=== PATIENT | female | born 1985 | race Caucasian/White ===

== ENCOUNTER 2018-07-27 08:28 | Emergency (ER) | payer OTHER ==
[~2018-07-27] VITALS: Ht 172.7 cm; Wt 90.7 kg
[~2018-07-27 08:28] MED LIST: CLEOCIN HCL300 MG PO; NAPROSYN500 MG PO; NOHOMEMEDICATIONS; NORCO 5-325 TA1 EACH PO; TRINESSA1 EACH; VICODIN 5-5001 EACH PO
[2018-07-27 08:37] VITALS: BP 137/76
[2018-07-27] MEDS ORDERED: XANAX 0.5 MG0.5 MG PO (08:39)
[2018-07-27] MEDS ORDERED: TRAMADOL 50 MG50 MG PO (08:39)
== END 2018-07-27 09:14 | disposition home or self-care (01) ==
LOC: M.ERS 08:28
DX: L02.214 Cutaneous abscess of groin (principal); I10 Essential (primary) hypertension; Z88.2 Allergy status to sulfonamides; Z96.643 Presence of artificial hip joint, bilateral

== ENCOUNTER 2018-11-24 07:54 | Inpatient (IN) | payer OTHER ==
[~2018-11-24] VITALS: Ht 172.7 cm; Wt 86.2 kg
--- NOTE | ~2018-11-24 | OP ---
[address] [address] OPERATIVE REPORT Name: JOSE BRUNO Room: [address] IN ..#: [id number] Admission: 11/24/18 Attend Phys: Zainab Padilla MD Discharge: Date of : 81 Report #: [id number] THIS REPORT FOR: //name// CC: Zainab Menesescurtis DATE OF SERVICE: 11/27/2018 PREPROCEDURE DIAGNOSIS: Right breast abscess. POSTPROCEDURE DIAGNOSIS: Right breast abscess. SURGEON: Martin Guillory DO ASSISTANTS: Lauri Frances, PGY-3 and [employer] student. OPERATION PERFORMED: Incision and drainage of right breast abscess. ANESTHESIA: General with an LMA and local. ESTIMATED BLOOD LOSS: 10 mL. SPECIMEN REMOVED: Wound cultures. COMPLICATIONS: None. INDICATIONS: The patient is a 33-year-old female that presented with a painful and cellulitic right breast abscess. She underwent conservative care with warm compresses and antibiotics, but failed to improve. She was informed of the risks and benefits of incision and drainage and consented to drainage in the operating room. TECHNIQUE: After informed consent was obtained, the patient was brought to the operating room and placed in a supine position. SCDs were applied. General anesthesia with an LMA was applied. Antibiotics were given as scheduled. The patient was prepped and draped in the usual sterile fashion. Surgical pause was held to confirm proper patient and procedure. The cellulitic area was marked with a marking pen. A #11 blade was then used to create a cruciate incision over the area of maximal fluctuance, which was medial to the nipple, right at the border of the areola. Immediate egress of purulent material was appreciated. Two sets of wound cultures were obtained directly from the wound. A suction was then introduced into the cavity and pus was suctioned. The cavity was then explored with finger dissection as well as a Pam clamp. All loculations were lysed. The abscess was explored to its limits in all directions. The wound was then thoroughly irrigated with hydrogen peroxide followed by thorough irrigation with saline. The [place] [address] OPERATIVE REPORT Name: JOSE BRUNO Room: [address] IN [facility]#: [id number] Admission: 11/24/18 Attend Phys: Zainab Padilla MD Discharge: Date of : 81 Report #: [id number] inch plain packing strips. 0.5% Marcaine with epinephrine was used for local anesthesia. The wound was then covered with 4 x 4s and ABD and tape. The patient tolerated the procedure well. All counts were correct at the close of the case. She was transferred to the PACU to return to the floor and antibiotics to continue. By: [id number] Frances DO /jeromy
[~2018-11-24 07:54] MED LIST changes: +TRAMADOL 50 MG50 MG PO; +XANAX 0.5 MG0.5 MG PO
[2018-11-24 08:05] VITALS: BP 125/72
[2018-11-24] MEDS ORDERED: EFFEXOR XR75 MG PO (08:08)
--- NOTE | 2018-11-24 08:20 | NUR ---
PT GIVEN WARM BLANKET FOR COMFORT. PTS MOTHER AT BEDSIDE. PT OFFERED REASSURANCE. WILL CONT TO MONITOR. CALL LIGHT WITHIN REACH. BED IN LOW POSITION.
[2018-11-24 09:44] LABS: ABSOLUTE EOSINOPHILS 0.1 thou/uL (0.0-0.7); ABSOLUTE LYMPHOCYTES 1.6 thou/uL (0.8-5.3); ABSOLUTE MONOCYTES 0.9 thou/uL (0.0-1.2); BASOPHILS 0.4 %; EOSINOPHILS 0.6 %; HEMATOCRIT 36.4 % (37.0-47.0); HEMOGLOBIN 12.2 gm/dL (12.0-15.0); LYMPHOCYTES 15.2 %; MCH 30.6 pg (26.0-34.0); MCHC 33.6 g/dL (28.0-37.0); MCV 91.2 fL (80.0-100.0); MONOCYTES 8.2 %; MPV 8.1 fl. (7.2-11.1); NUCLEATED RBCS 0 /100WBC; PLATELET COUNT* 278 thou/uL (150-400); POLYS 75.6 %; RBC 3.99 mil/uL (4.20-5.00); RDW-CV 13.2 % (10.5-14.5); WBC 10.6 thou/uL (4.0-11.0)
[2018-11-24 09:52] LABS: INR 0.9; PROTIME 9.7 Seconds (9.20-11.50)
[2018-11-24 09:58] LABS: CALCIUM 8.9 mg/dL (8.5-10.1); CREATININE 0.6 mg/dL (0.6-1.3); POTASSIUM 3.7 mmol/L (3.5-5.1)
[2018-11-24 10:03] LABS: ALBUMIN 2.9 g/dL (3.4-5.0); TOTAL BILIRUBIN 0.2 mg/dL (<0.1-1.0); TOTAL PROTEIN 7.3 g/dL (6.4-8.2)
--- NOTE | 2018-11-24 10:39 | NUR ---
URINE SPEC SENT TO LAB PER TUBE.
[2018-11-24 13:16] VITALS: BP 128/75
[2018-11-24 13:38] VITALS: BP 126/64
[2018-11-24 16:00] VITALS: BP 118/70
--- NOTE | 2018-11-24 18:27 | NUR ---
ASSESSMENT COMPLETE. PT ADMITTED WITH CELLULITIS/ABCESS RIGHT BREAST. IV VANC AND UNASYN GIVEN. SURGERY CONSULTED. WARM COMPRESS Q2H ORDERED. PT HAS IV FLUIDS INFUSING. MORPHINE AND HYDROCODONE GIVEN FOR PAIN. PT IS UP ONE ASSIST WITH WALKER. PT IS ON ROOM AIR. CURRENT SMOKER, NICOTINE PATCH IN PLACE. PT DENIES ANY OTHER CONCERNS AT THIS TIME. SEE ASSESSMENT AND VITALS FOR OTHER DETAILS. CALL LIGHT WITHIN REACH, WILL CONTINUE PLAN OF CARE
[2018-11-24 20:00] VITALS: BP 118/68
[2018-11-25 04:26] LABS: HEMATOCRIT 34.3 % (37.0-47.0); HEMOGLOBIN 11.4 gm/dL (12.0-15.0); MCHC 33.4 g/dL (28.0-37.0); MCV 92.8 fL (80.0-100.0); RBC 3.7 mil/uL (4.20-5.00); RDW-CV 13.3 % (10.5-14.5); WBC 9.3 thou/uL (4.0-11.0)
[2018-11-25 04:35] LABS: ALBUMIN 2.6 g/dL (3.4-5.0); CALCIUM 8.8 mg/dL (8.5-10.1); CREATININE 0.7 mg/dL (0.6-1.3); MAGNESIUM 1.6 mg/dL (1.8-2.4); TOTAL BILIRUBIN 0.2 mg/dL (<0.1-1.0); TOTAL PROTEIN 6.7 g/dL (6.4-8.2)
--- NOTE | 2018-11-25 05:11 | NUR ---
ASSESSMENT: PT REMAIN ALERT AND ORIENT TIMES FOUR. C/O RIGHT BREAST PAIN, PRN PAIN MEDS GIVEN WITH MINIMAL RELIEF OF PAIN. PT'S MOTHER STAYED AT THE BEDSIDE DURING THE NIGHT. PT WAS NPO AT IN BUT DID GET A PAIN MED AND XANAX WITH ONLY A SMALL SIP OF WATER. PT GETS VERY ANXIOUS WITH LAB DRAWS, LOVENOX STICKS AND ANYTHING THAT HAS TO DO WITH "NEEDLE" TO THE POINT THAT HER MOTHER HAS TO COME HOLD HER HAND. PT IS ABLE TO AMVULATE TO THE BR WITHOUT ASSISTANCE. GAIT IS STEADY. VSS, AFEBRILE. RIGHT BREAST WAS ELEVATED WITH A ROLLED TOWEL TO RELEASE SOME DEPENDANT PRESSURE. NO SIGN OF OOZING, NOR LEAKS FROM THE BREAST FOR CULTURES. PT STATE THAT ANTIBX HAVE A ADVERSE REACTION WITH HER, INSTEAD OF THEM MAKING HER FEEL BETTER, THEY MAKE HER FEEL WORSE AND MAKE HER PAIN MORE CONSTANT OPPOSE TO IT BEING INTERMITTANT. NO PROGRESS TOWARDS DC GOALS AT THIS TIME, EUGENIA CONTINUE TO MONITOR.
[2018-11-25 08:07] VITALS: BP 125/73
[2018-11-25 15:48] VITALS: BP 105/62
--- NOTE | 2018-11-25 17:44 | NUR ---
ASSESSMENT COMPLETE. PT ALERT AND ORIENTED X4. PT GIVEN PAIN MEDICATION NEEDED THROUGHOUT THE DAY. PT MEDS ADJUSTED PER DR SHARMA. LIDOCAINE CREAM STARTED AND PT REPORTS PAIN RELIEF WHEN APPLIED. PT USING HEATING PAD TO AREA Q2 HOURS FOR 20 MIN. PT IS ON ROOM AIR, VSS. DENIES N/V. TOLERATING DIET. MAG REPLACED IV. IV ABX GIVEN. IV FLUIDS DC'D. PT IS NPO AFTER MIDNIGHT. PT IS UP AD HALLE. SEE ASSESSMENT AND VITALS FOR OTHER DETAILS. PT HAS NO OTHER CONCERNS AT THIS TIME. CALL LIGHT WITHIN REACH, WILL CONTINUE PLAN OF CARE
[2018-11-25 19:44] VITALS: BP 126/71
[2018-11-26 04:47] LABS: HEMATOCRIT 32.3 % (37.0-47.0); HEMOGLOBIN 10.8 gm/dL (12.0-15.0); MCH 30.5 pg (26.0-34.0); MCHC 33.3 g/dL (28.0-37.0); MCV 91.6 fL (80.0-100.0); RBC 3.53 mil/uL (4.20-5.00); RDW-CV 13.1 % (10.5-14.5)
[2018-11-26 05:07] LABS: APTT 30.3 Seconds (25.0-31.3); INR 0.9; PROTIME 9.4 Seconds (9.20-11.50)
[2018-11-26 05:17] LABS: CALCIUM 8.8 mg/dL (8.5-10.1); CREATININE 0.6 mg/dL (0.6-1.3); POTASSIUM 3.7 mmol/L (3.5-5.1)
--- NOTE | 2018-11-26 06:17 | NUR ---
PT USED HEATING PAD ON AND OFF DURING THE SHIFT. SHE WAS ALSO ABLE TO TAKE A HOT SHOWER WHICH HELPED WITH HER PAIN. MULTIPLE DOSES OF PAIN MEDICATION WERE NEEDED DURING THE SHIFT TO KEEP HER PAIN UNDER CONTROL. SHE WAS ABLE TO GET A PARTIAL NIGHTS SLEEP. MOTHER AT BEDSIDE.
[2018-11-26 08:00] VITALS: BP 118/72
[2018-11-26] MEDS ORDERED: ANECREAM5 GM TOP (09:40)
[2018-11-26] MEDS ORDERED: HYDROCODON-ACE1 EAC7 PO (09:40)
[2018-11-26] MEDS ORDERED: TRAMADOL 50 MG50 MG PO (09:40)
--- NOTE | 2018-11-26 10:49 | NUR ---
TYRONE faxed referral information to [facility] to check for IV abx benefits per Dr Padilla in case surgery determines pt would need IV abx at home. Dr Padilla discussed with SW that pt hopeful to dc today but pt might need one more day if the ultrasound shows that pt needs drainage. If not, pt might be able to dc home today. Pt mother is supportive. SW to continue to follow to assist with safe dc planning.
--- NOTE | 2018-11-26 15:45 | NUR ---
ASSUMED CARE OF PATIENT AT THIS TIME. REPORT RECEIVED FROM JENNIFER DOMINGUEZ.
[2018-11-26 16:00] VITALS: BP 128/76
--- NOTE | 2018-11-26 18:29 | NUR ---
PATIENT RESTING IN BED. PATIENT HAS COMPLAINTS OF PAIN TO BREAT, TREATED ADEQUATELY WITH MEDICATION AND HEAT. WOUND IS NOT DRAINING AT THIS TIME. PATIENT HAS GOOD APPETITE. PATIENT DENIES ANY NEEDS AT THIS TIME. CALL LIGHT WITHIN REACH. WILL CONTINUE TO MONITOR.
[2018-11-26 20:00] VITALS: BP 130/76
--- NOTE | 2018-11-27 05:49 | NUR ---
ASSUMED PATIENT CARE AT 1900. PATIENT ALERT AND ORIENTED TIMES FOUR. HOT PAD ON AND OFF THROUGH THE NIGHT. APPLIED TO RIGHT BREAST WHEN ON. COMPLAINTS OF PAIN, CONTROLLED WITH IV PAIN MEDICATION. IV PATENT TO ABT'S. UP AD HALLE IN ROOM. NO NEW AREAS OF CONCERN NOTED. BONE DRIER AND HOURLY ROUNDING COMPLETED CHARTED.
[2018-11-27 07:53] LABS: HEMATOCRIT 30.7 % (37.0-47.0); HEMOGLOBIN 10.2 gm/dL (12.0-15.0); MCH 30.5 pg (26.0-34.0); MCHC 33.3 g/dL (28.0-37.0); MCV 91.5 fL (80.0-100.0); MPV 8.8 fl. (7.2-11.1); RBC 3.36 mil/uL (4.20-5.00); RDW-CV 13.4 % (10.5-14.5); WBC 7.5 thou/uL (4.0-11.0)
[2018-11-27 08:22] LABS: CALCIUM 8.4 mg/dL (8.5-10.1); CREATININE 0.7 mg/dL (0.6-1.3); MAGNESIUM 1.7 mg/dL (1.8-2.4); PHOSPHORUS* 3.7 mg/dL (2.5-4.9); POTASSIUM 3.7 mmol/L (3.5-5.1)
[2018-11-27 10:04] VITALS: BP 119/75
[2018-11-27 10:15] VITALS: BP 119/75
[2018-11-27 14:24] VITALS: BP 110/70
[2018-11-27 16:00] VITALS: BP 136/78
--- NOTE | 2018-11-27 16:20 | NUR ---
Possible for pt to dc home with po abx but if pt dc on iv abx over the weekend, [facility] and weekend call number is [phone] if needed.
--- NOTE | 2018-11-27 17:56 | NUR ---
PATIENT IS ALERT AND ORIENTED TODAY, OFF THE FLOOR IN THE OR PART OF THE DAY. VITAL SIGNS STABLE ON ROOM AIR. PAIN IN BREAST IS BETTER AFTER SURGERY PER PATIENT, COMPLAINS OF A HEADACHE THIS, MEDICATION GIVEN WAITING TO SEE RESULTS. PATIENT WANTS TO SHOWER AFTER EATING AND ANTIBIOTICS FINISH RUNNING. CALL LIGHT IS IN REACH, WILL CONTINUE TO MONITOR.
--- NOTE | 2018-11-27 18:15 | CON ---
[address] [address] CONSULTATION Name: JOSE BRUNO Room: [address] IN .R.#: [id number] Admission: 11/24/18 Attend Phys: Zainab Padilla MD Discharge: Date of : 81 Report #: [id number] THIS REPORT FOR: //name// CC: Zainab Pepper DATE OF SERVICE: 11/27/2018 ATTENDING PHYSICIAN: Dr. Padilla. REASON FOR EVALUATION: Right breast skin and soft tissue infection with cellulitis/abscess. HISTORY OF PRESENT ILLNESS: Chart reviewed, patient examined. This is a 33-year-old woman with history of recurrent skin and soft tissue infections. She has had a couple of lesions involving her inguinal sites and actually required a surgical operative intervention. Over the course of the last couple of weeks, she had developed inflammatory process involving her right breast, sort of anteriorly worsened. She was evaluated, started on cephalexin. In spite of that persisted, due to that was considered for evaluation in the Emergency Room and was admitted. Ultrasound showed large area of infection, inflammatory phlegmon tissue within the medial subareolar region of the right breast measuring 4.5 cm in diameter. She is at the moment scheduled to undergo operative debridement. She is not aware of precise culture results of any of the previous wounds, had early on responded to cephalexin, does note she has an adverse drug effects to Vibramycin. She is not typically systemically ill. No fevers or chills. Appetite is okay. No pulmonary or gastrointestinal related complaints. ALLERGIES: SULFA. CURRENT MEDICATIONS: Include vancomycin, ketorolac, Tramadol, hydrocodone, enoxaparin. She is on Unasyn as well, nicotine, famotidine, venlafaxine. Alprazolam PAST MEDICAL HISTORY: Has a history of avascular necrosis of the bilateral hips, post-hip replacements. Hypertension, history of recurrent skin and soft tissue infection. SOCIAL HISTORY: Smokes half pack of cigarettes a day, occasional ethanol, no illicit drug use. FAMILY HISTORY: Noncontributory. REVIEW OF SYSTEMS: Ten point review of systems otherwise unremarkable with the exception of noted above [place] [address] CONSULTATION Name: JOSE BRUNO Glenn Room: [address]#: [id number] Admission: 11/24/18 Attend Phys: Zainab Padilla MD Discharge: Date of : 81 Report #: [id number] PHYSICAL EXAMINATION: GENERAL: She is alert, cooperative, in mild distress at this point. She is seen immediately preoperatively, appears to be well nourished. VITAL SIGNS: Temperature 98.2, pulse 61, respirations 16, blood pressure 119/75. SKIN: Warm, dry, no rashes. HEENT: Extraocular muscles intact. She is normocephalic. NECK: Supple. LUNGS: Clear to auscultation. HEART: Regular, I do not appreciate a murmur. ABDOMEN: Soft, nontender, nondistended. There are no peritoneal signs. GENITOURINARY: Deferred. RECTAL: Deferred. LABORATORY DATA: Electrolytes today, sodium 138, potassium 3.7, chloride 106, bicarb is 27, BUN and creatinine 11 and 0.7, estimated GFR of 95. CBC: White count 7.5, H and H 10.2 and 30.7, platelets of 211. Ultrasound of the breasts as described above, complex irregular mass posterior to the nipple, small pockets of fluid, would be consistent with organizing abscess. Blood cultures are sterile thus far. ASSESSMENT: Right breast skin and soft tissue infection with abscess. We agree with empiric antimicrobial therapy, would presume a Staph or Strep etiology. We will continue vancomycin, Unasyn. Await culture results. Likely, he will need wound care as well, ideally with a significant debulking. Should be able to get away with oral antibiotics, assuming there are some options given her potential resistance as well as adverse drug effect issues. <ELECTRONICALLY SIGNED> By: Jose Alfredo Joseph MD 11/27/18 1815 [id number] [id number] Joseph MD /nt
[2018-11-28] VITALS: BP 131/76
--- NOTE | 2018-11-28 07:03 | NUR ---
ASSUMED PT CARE AT 1930. NURSING ASSESSMENT COMPLETED AT START OF SHIFT. HOURLY ROUNDING COMPLETED. PRN PAIN MEDICATION AND TORADOL ADMINISTERED THIS SHIFT, SEE EMAR FOR DOCUMENTATION. PT STATES SHE FEELS BETTER THIS MORNING. IV ANTIBIOTICS INFUSING. NEGATIVE SEPSIS SCREENING THIS SHIFT. CALL LIGHT WITHIN REACH.
[2018-11-28 09:00] VITALS: BP 138/79
[2018-11-28 16:55] VITALS: BP 142/90
--- NOTE | 2018-11-28 18:12 | NUR ---
PATIENT IS ALERT AND OREINTED TODAY VERY PLEASANT. DURING WOUND PACKING CHANGE PATIENT BECAME VERY ANXIOUS, WILL PREMEDICATE TOMORROW PER PROVIDER. PAIN HAS BEEN BETTER CONTROLLED TODAY. VITAL SIGNS STABLE ON ROOM AIR. UP AD HALLE IN ROOM, MOM HAS BEEN AT BEDSIDE MOST OF THE DAY. CALL LIGHT IS IN REACH, WILL CONTIINUE TO MONITOR.
[2018-11-28 20:30] VITALS: BP 139/82
--- NOTE | 2018-11-29 04:36 | NUR ---
ASSUMED CARE AT START OF SHIFT PT UP IN ROOM WITH MOTHER, PT TOOK SHOWER TOLERATED WELL , PAIN MEDICATION GIVEN PRESCRIBED AND IV ABX GIVEN , PT SLEPT WELL THROUGOUT HOURLY ROUNDS
[2018-11-29 09:58] VITALS: BP 133/68
[2018-11-29 16:00] VITALS: BP 142/79
--- NOTE | 2018-11-29 18:42 | NUR ---
PATIENT IS ALERT AND ORIENTED TODAY VERY PLEASANT. ANXIETY IS MUCH IMPROVED TODAY. TOLERATED PACKING AND DRESSING CHANGE BETTER TODAY WITH IV MEDICATIONS. VITAL SIGNS STABLE ON ROOM AIR. IV SITE IS SLUGGISH BUT WORKS WELL, PATIENT WANTS TO KEEP IT SINCE IT WORKS INSTEAD OF HAVING ANOTHER ONE STARTED. CALL LIGHT IS IN REACH, WILL CONTINUE TO MONITOR.
[2018-11-30] VITALS: BP 136/76
--- NOTE | 2018-11-30 07:00 | NUR ---
PATIENT SLEPT WELL DURING THIS SHIFT. NEW IV STARTED IN LT FOREARM; ANTIBIOTICS INFUSING PER DR ORDER THEN PT IS SALINE LOCKED. PT UP AD HALLE TO BATHROOM. MOTHER IS AT BEDSIDE. CHANGED PACKING AND DRESSING IN RT BREAST AFTER PT MEDICATION WITH ATIVAN AND MORPHINE. PT TOLERATED WELL. PT DENIES PAIN AT THIS TIME. FREQUENTLY USED ITEMS AND CALL LIGHT WITHIN REACH. SIDERAILS UPX2. WILL CONTINUE TO MONITOR.
[2018-11-30 08:45] VITALS: BP 123/70
[2018-11-30 12:11] VITALS: BP 123/70
[2018-11-30] MEDS ORDERED: AUGMENTIN 875-1 EACH PO (12:48)
--- NOTE | 2018-11-30 15:36 | NUR ---
PATIENT PACKING CHANGED THIS AM PER SURGERY. IV SL, SCHED ABX INFUSED ORDERED. PRN HYDROCODONE GIVEN X 1 THIS AFTERNOON. UP AD HALLE. PATIENT GIVEN SUPPLIES FOR HOME DRESSING CHANGES, REFUSED HOME HEALTH. PATIENT VERBALIZES UNDERSTANDING OF PAPERWORK AND SCRIPTS, PATIENT DID REFUSE TRAMADOL AND HYDROCODONE SCRIPTS. STATED SHE HAS THESE MEDICATIONS AT HOME. PATIENT TAKEN OUT VIA WHEELCHAIR WITH ALL BELONGINGS.
== END 2018-11-30 15:40 | disposition home or self-care (01) | DRG 584 ==
LOC: M.ERS 07:54 → M.TBA-ER 09:26 → M.3W 09:26
PROVIDERS: Emergency Medicine; ADMIT Internal Medicine
PROC: 0H9T0ZZ Drainage of Right Breast, Open Approach (ICD-10-PCS; principal; 2018-11-27)
DX: N61.1 Abscess of the breast and nipple (principal); E44.1 Mild protein-calorie malnutrition; L03.319 Cellulitis of trunk, unspecified; I10 Essential (primary) hypertension; F17.210 Nicotine dependence, cigarettes, uncomplicated; N60.01 Solitary cyst of right breast; F32.9 Major depressive disorder, single episode, unspecified; F41.9 Anxiety disorder, unspecified; Z96.643 Presence of artificial hip joint, bilateral; Z79.1 Long term (current) use of non-steroidal anti-inflammatories (NSAID); Z68.28 Body mass index [BMI] 28.0-28.9, adult; Z79.899 Other long term (current) drug therapy; Z88.2 Allergy status to sulfonamides; Z23 Encounter for immunization

== ENCOUNTER 2019-12-29 18:43 | Emergency (ER) | payer OTHER ==
[~2019-12-29] VITALS: Ht 172.7 cm; Wt 95.3 kg
[~2019-12-29 18:43] MED LIST changes: +ANECREAM5 GM TOP; +AUGMENTIN 875-1 EACH PO; +EFFEXOR XR75 MG PO; +HYDROCODON-ACE1 EAC7 PO
[2019-12-29] MEDS ORDERED: WELLBUTRIN 75 M75 M1 PO (18:51)
[2019-12-29 20:05] LABS: ABSOLUTE BASOPHILS 0.1 thou/uL (0.0-0.2); ABSOLUTE EOSINOPHILS 0.1 thou/uL (0.0-0.7); ABSOLUTE LYMPHOCYTES 2.1 thou/uL (0.8-5.3); ABSOLUTE MONOCYTES 0.9 thou/uL (0.0-1.2); ABSOLUTE NEUTROPHILS 11.7 thou/uL (1.6-8.1); BASOPHILS 0.9 %; EOSINOPHILS 0.4 %; HEMATOCRIT 35.3 % (37.0-47.0); HEMOGLOBIN 12.1 gm/dL (12.0-15.0); LYMPHOCYTES 13.8 %; MCH 30.7 pg (26.0-34.0); MCHC 34.2 g/dL (28.0-37.0); MCV 89.9 fL (80.0-100.0); MONOCYTES 6.1 %; MPV 8.7 fl. (7.2-11.1); NUCLEATED RBCS 0 /100WBC; PLATELET COUNT* 252 thou/uL (150-400); POLYS 78.8 %; RBC 3.93 mil/uL (4.20-5.00); WBC 14.9 thou/uL (4.0-11.0)
[2019-12-29 20:23] LABS: CALCIUM 8.9 mg/dL (8.5-10.1); CREATININE 0.7 mg/dL (0.6-1.3); POTASSIUM 3.6 mmol/L (3.5-5.1)
[2019-12-29 20:25] LABS: PROTIME 10.6 Seconds (9.20-11.50)
[2019-12-29 20:28] LABS: ALBUMIN 3.6 g/dL (3.4-5.0); MAGNESIUM 1.5 mg/dL (1.8-2.4); TOTAL BILIRUBIN 0.2 mg/dL (<0.1-1.0); TOTAL PROTEIN 7.6 g/dL (6.4-8.2)
[2019-12-29 20:29] LABS: URINE BILIRUBIN NEGATIVE (Negative); URINE BLOOD NEGATIVE (Negative); URINE CLARITY SL CLOUDY; URINE COLOR YELLOW; URINE GLUCOSE-RANDOM NEGATIVE (Negative); URINE KETONES NEGATIVE (Negative); URINE LEUKOCYTES-REFLEX 1+ (Negative); URINE NITRITE-REFLEX NEGATIVE (Negative); URINE PROTEIN NEGATIVE (Negative); URINE SPECIFIC GRAVITY 1.015 (1.005-1.030); URINE UROBILINOGEN 0.2 E.U./dl (0.2-1.0)
[2019-12-29 20:35] LABS: SQUAMOUS >10 Many /LPF (0-3)
[2019-12-29 20:36] LABS: BACTERIA-REFLEX >30 Many /HPF (None Seen); URINE RBC 0-2 Rare /HPF (0-2); URINE WBC-REFLEX 6-15 Few /HPF (0-5)
[2019-12-29 20:37] LABS: CASTS None Seen /LPF (None Seen); CRYSTALS None Seen /LPF (None Seen)
[2019-12-30 01:20] VITALS: BP 129/81
--- NOTE | 2019-12-30 09:54 | EKG ---
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
== END 2019-12-30 01:23 | disposition short-term general hospital (02) ==
LOC: M.ERS 18:43
PROVIDERS: Emergency Medicine
DX: S72.8X2A Other fracture of left femur, initial encounter for closed fracture (principal); N39.0 Urinary tract infection, site not specified; E83.42 Hypomagnesemia; W18.39XA Other fall on same level, initial encounter; Y93.89 Activity, other specified; Y92.89 Other specified places as the place of occurrence of the external cause; Y99.8 Other external cause status